=== PATIENT | male | born 1965 | race Caucasian/White ===

== ENCOUNTER → 2020-06-18 09:24 | Outpatient (CLI) | payer OTHER, SELFPAY ==
[2020-06-18 10:27] LABS: Add Manual Diff / Slide Review NO; Basophils Absolute Auto 100 /uL (0-100); Basophils Percent Auto 0.9 % (0-2); Eosinophils Absolute Auto 300 /uL (0-450); Eosinophils Percent Auto 3.4 % (2-4); Hematocrit 40.6 % (41-53); Hemoglobin 13.9 g/dL (13.5-17.5); Lymphocytes Absolute Auto 2800 /uL (1100-4500); Lymphocytes Percent Auto 32.1 % (25-40); Mean Corpuscular HGB Conc 34.4 % (30-36); Mean Corpuscular Hemoglobin 32.8 PG (26-34); Mean Corpuscular Volume 95.5 fL (80-100); Monocytes Absolute Auto 600 /uL (0-900); Monocytes Percent Auto 6.8 % (3-14); Neutrophils Absolute Auto 5000 /uL (1500-7000); Neutrophils Percent Auto 56.8 % (50-75); Platelet Count 236 X10^3/uL (150-400); Red Blood Cell Count 4.25 X10^6/uL (4.5-5.9); Red Cell Distribution Width 13.5 % (11.6-14.8); White Blood Cell Count 8.7 X10^3/uL (4.5-11.0)
[2020-06-18 11:05] LABS: BUN Creatinine Ratio 24.7 (6-22); Blood Urea Nitrogen 19 mg/dL (9-20); Calcium 9.5 mg/dL (8.4-10.2); Carbon Dioxide 26 mmol/L (22-32); Chloride 107 mmol/L (98-107); Estimated Glomerular Filt Rate > 60.0 mL/min (>60); Glucose 99 mg/dL (70-100); HEMOLYSIS < 15 (0-50); Potassium 4.4 mmol/L (3.4-5.1); Sodium 141 mmol/L (137-145)
== END ==
PROVIDERS: PCP Family Medicine; Referring Provider Orthopaedic Surgery; Visit Provider Orthopaedic Surgery
DX: Z01.818 Encounter for other preprocedural examination (principal); Z01.812 Encounter for preprocedural laboratory examination; R73.9 Hyperglycemia, unspecified; N39.0 Urinary tract infection, site not specified
CPT/HCPCS: 36415; 80048; 83036; 85025; 93005; 93010

== ENCOUNTER → 2020-06-26 09:37 | Outpatient (CLI) | payer OTHER, SELFPAY ==
[2020-06-26 10:00] LABS: Bacteria Urine None Seen; RBC Urine None Seen (0-5/HPF); WBC Urine None Seen (0-5/HPF)
[2020-06-26 10:58] LABS: Appearance Urine UA CLEAR; Bilirubin Urine UA NEGATIVE (NEGATIVE); Color Urine UA YELLOW; Glucose Urine UA NEGATIVE (Negative); Ketones Urine UA NEGATIVE (NEGATIVE); Leukocyte Esterase Urine UA NEGATIVE (NEGATIVE); Nitrite Urine UA NEGATIVE (Negative); Occult Blood Urine UA NEGATIVE (Negative); Protein Urine UA NEGATIVE (Negative); Specific Gravity Urine UA 1.025 (1.000-1.035); Urobilinogen Urine UA 0.2 E.U./dL (0.2); pH Urine UA 5.5 (4.5-8.0)
[2020-06-26 11:14] LABS: Culture Indicated Urine Cult Not Indicated; Urine Comments Microscopic Normal
[2020-06-27 14:13] LABS: COVID19 Sendout Not Detected (Not Detect)
== END ==
PROVIDERS: Physician Assistant; PCP Family Medicine; Referring Provider Orthopaedic Surgery; Visit Provider Orthopaedic Surgery
DX: Z11.59 Encounter for screening for other viral diseases (principal)
CPT/HCPCS: 81001; 87635

== ENCOUNTER 2020-06-29 09:41 | Observation (INO) | payer OTHER, SELFPAY ==
[2020-06-27 09:54] VITALS: BMI 31.4
[2020-06-29] VITALS (10 sets, daily range): BP systolic 117–134; BP diastolic 50–86; PULSE 65–88; RESP 16–24; TEMP 35.1–37.2; O2SAT 93–100; BMI 29.9
--- NOTE | 2020-06-29 | DI.RAD.S_ITS ---
PROCEDURE: XR PELVIS 1-2V INDICATIONS: LEFT HIP INTER OP TECHNIQUE: Intra-operative view of the pelvis and hip acquired. COMPARISON: None. FINDINGS: Bones: Intraoperative devices prior to placement of arthroplasty prostheses are in expected positions. No fractures or suspicious bony lesions. Soft tissues: Overlying surgical retractors are present, along with other intraoperative changes. IMPRESSION: Expected postsurgical change for intraoperative device placement prior to arthroplasty. Dictated by: Lexy Durbin MD, PhD on 06/29/2020 at 14:29 Approved by: Lexy Durbin MD, PhD on 06/29/2020 at 14:29
--- NOTE | 2020-06-29 | DI.RAD.S_ITS ---
PROCEDURE: XR HIP W PEL IF DONE LT 2V INDICATIONS: POST OP TECHNIQUE: 2 view(s) of the hip acquired. COMPARISON: [facility], CR, XR PELVIS 1-2V, 06/29/2020, 13:11. [facility], CR, XR PELVIS WITH LATERAL HIP LEFT, 06/15/2020, 15:22. FINDINGS: Bones: Patient is status post left hip arthroplasty, with hardware components in expected positions. The hip joint appears congruent. The visualized bony structures appear intact. Soft tissues: Overlying postoperative changes are noted. No suspicious soft tissue densities. A postoperative drain has been placed. IMPRESSION: Normal postoperative examination. Dictated by: Lm Nelson M.D. on 06/29/2020 at 14:08 Approved by: Lm Nelson M.D. on 06/29/2020 at 14:08
[2020-06-29] MEDS: ACETAMINOPHEN 325 MG TABLET 975 MG PO (10:03)
[2020-06-29] MEDS: PREGABALIN 75 MG CAPSULE PO (10:04)
[2020-06-29] MEDS: CELECOXIB 200 MG CAPSULE PO (10:04)
[2020-06-29] MEDS: LACTATED RINGERS 1,000 ML 42 ML IV ×2 (10:20→12:55)
[2020-06-29] MEDS: VANCOMYCIN 1,000 MG/200 ML PIGGYBACK 200 MG IV (10:33)
--- NOTE | 2020-06-29 11:27 | PM.PREOP ---
Pre-operative Note COVID-19 COVID-19 status: Negative Interval Note History & Physical reviewed/Exam performed by Physician: Yes Changes to H&P: No
--- NOTE | 2020-06-29 11:28 | P.OP_ITS ---
Operative Date/Time/Diagnoses Date of procedure: 06/29/20 Time of procedure: 11:56 Pre-op diagnosis: Severe left hip osteoarthritis Post-op diagnosis: same Procedure & Clinicians Procedure: Left total hip arthroplasty posterior approach Same procedure as scheduled: Yes Indications: The patient has had progressively worsening left hip pain with radiographic changes consistent with arthritis. Non-operative management has failed and the patient has requested total hip replacement. The risks, benefits and alternatives to surgery were discussed with the patient prior to proceeding. Risks discussed included, but were not limited to, failure to relieve pain, leg length discrepancy, dislocation, stiffness, infection, nerve damage, deep venous thrombosis, pulmonary embolism, stroke, coma, heart attack, permanent paralysis and , as well as the potential need for eventual revision of the prosthetic. Surgeon: Shannan Chen English Instructor: Peyton Villa Anesthesia Type: General and Spinal Operative Notes Findings: Severe left hip osteoarthritis, good stability, adequate bone Closure Type: primary Specimen(s): none sent Prosthetic devices, grafts, tissues, transplants, or devices: Chen [employer]hew R3 size 56, anthology size 8 standard offset, 115 mm screw, 36 by-3 femoral head Estimated Blood Loss (mL): 250 Blood products transfused: none Procedure in detail: The patient was seen in the pre-operative area, where the patient identified the left hip as the operative site and this was marked with my initials. The patient received pre-operative antibiotics and was taken to the operating room and placed on the operative table in the right lateral decubitus position after satisfactory anesthesia. A multimedia project manager out was performed. The left leg was prepared from the ankle to the iliac crest with ChloroPrep in the usual fashion and draped through sterile drapes. The hip was approached through an approximately 20 cm incision centered over the greater trochanter and curving gently posteriorly as it went proximally. This was carried sharply to the fascia roxanne, which was divided and retracted with a self retaining retractor. The trochanteric bursa was excised with care being taken to avoid the sciatic nerve, which was identified and protected throughout the case. The short external rotators were incised and the capsulomuscular flap was raised and tagged for later repair. The hip was dislocated, and a femoral neck osteotomy performed approximately 15 mm above the lesser trochanter. Retractors were placed around the femur. The canal was opened with a box cutting osteotome, followed by a T handled reamer and a lateralizing reamer. The chili pepper broach was then used, followed by sequential broaching until there was good stability of the broach in the femur. Retractors were placed to expose the acetabulum. The labrum and central soft tissues were removed. Reaming was performed initially going up in 2 mm increments, then 1 mm increments until good bite was obtained with an odd sized reamer. The cup 1 mm larger than the last reamer was then inserted using the appropriate anteversion guides. Fixation was further supplemented with a single screw. A trial neutral liner was placed. The broach was placed in the canal. A trial head and neck were then placed and the hip relocated and checked for leg length and stability. An intraoperative film confirmed the component position and no evidence of fracture. The patient was stable in the position of sleep, of squatting, and could be put through a range of motion with 45 degrees internal rotation without dislocation. At 90 degrees flexion, internal rotation to 80? was possible before dislocation. This was felt to be satisfactory and the appropriate components were opened, and the trials were removed. The acetabular liner was impacted into position. The final stem was then impacted into the prepared femoral canal. A brief Betadine soak was performed while trialing with head options. The hip was meticulously irrigated with normal saline. Finally the femoral head was impacted onto the stem. The acetabulum was cleared of all material and the hip relocated one final time. The capsulomuscular flap was then repaired to the greater trochanter though an awl hole using the tag sutures. The short external rotators were repaired with a nonabsorbable suture. A deep drain was placed and brought out anteriorly. The fascia roxanne was closed with Vicryl. The subcutaneous layer was closed with barbed sutures and SteriStrips. An Aquacel Ag dressing was applied and the patient was taken to recovery having tolerated the procedure well. Complications: none Post-operative Condition: stable Disposition: Acute Care Plan for aftercare: The patient will be maintained on a standard total hip replacement protocol with weight bearing as tolerated and posterior hip precautions. The patient will receive Aspirin and sequential compression devices for DVT prophylaxis. The patient will be discharged home when safe for the home environment.
[2020-06-29] MEDS: CEFAZOLIN 2 GM/100 ML FROZ.PIGGY IV ×2 (11:59→17:08)
[2020-06-29] MEDS: TRANEXAMIC ACID 1,000 MG VIAL 1000 MG INJ ×2 (12:23→13:43)
--- NOTE | 2020-06-29 12:39 | SUR.OPER ---
Supine on padded OR bed. Pillow under head, arms secured on padded armboards <90 degree abduction. Safety belt across torso. Non-operative leg secured with tape over blanket over lower leg. Operative leg secured in DeMayo/Tj positioner. Foam padded brace at thigh of operative leg.
[2020-06-29] MEDS: BUPIVACAINE 0.25% W/ EPI 30 ML VIAL 60 ML INJ (12:48)
[2020-06-29] MEDS: BUPIVACAINE LIPOSOME 266 MG/20 ML VIAL INJ (12:49)
[2020-06-29] MEDS: SODIUM CHLORIDE IRRIG SOLUTION 250 ML, POVIDONE-IODINE SPONGE STICKS 1 APPLIC IRR (12:50)
[2020-06-29] MEDS: EPINEPHrine 1 MG/ML SUBCUT (12:51)
--- NOTE | 2020-06-29 15:12 | SUR.PHASEI ---
Addendum entered by Lizy Odonnell R.N. 06/29/20 15:23: Report given on site in his room Original Note: 1445 Awake, oriented; denies pain/nausea. Juice given, tolerated well. 1450 Preparing to transfer. Became diaphoretic; pt denies any pain; states that this is normal for him, that he overheats readily. Cool wash cloth given. Remained in sinus rhythm throughout PACU, no seizure activity in PACU. 1452 to room 219, bed down and locked, call light within reach, SCDs on. Pt continues to deny pain/nausea. VSS with RA sat in mid-upper 90s. Hip dressing remains CDI; hemovac drainage only in the tubing. Clothing bag to the room. Pt and staff deny any questions; RN aware of history of seizures. Stable.
--- NOTE | 2020-06-29 15:35 | PC.NURSE ---
Day Shift- Pt arrived to unit at 1500 via bed with VA Medel from PACU giving bedside report. Pt alert, oriented to call light. bed alarm on. Denies pain Left posterior hip surgical incision covered with CDI aquacel dressing CDI, hemovac insitu with compression. Ice pack to left hip area. HOB elevated. Pt diaphoretic upon arrival to unit, states he has this at home as well and is not related to post anesthesia. VA Medel from PACU had given pt cold washcloth. O2 sat 95% on RA, on continuous O2 monitoring. Report given to VA Vazquez evening shift at 1520.
[2020-06-29] MEDS: LACTATED RINGERS 1,000 ML 125 ML IV (16:00)
[2020-06-29] MEDS: IBUPROFEN 400 MG TABLET PO (17:08)
[2020-06-29] MEDS: LOVASTATIN 20 MG TABLET 40 MG PO (17:08)
[2020-06-29] MEDS: ONDANSETRON 4 MG/2 ML INJ IV ×2 (17:35→22:15)
[2020-06-29] MEDS: DOCUSATE 100 MG CAPSULE PO (20:43)
[2020-06-29] MEDS: ASPIRIN EC 81 MG TABLET PO (20:43)
[2020-06-29] MEDS: ZONISAMIDE 100 MG CAPSULE PO (20:44)
[2020-06-29] MEDS: lamoTRIgine 100 MG TABLET 300 MG PO (20:44)
[2020-06-29] MEDS: METOCLOPRAMIDE 10 MG/2 ML INJ IV (22:35)
[2020-06-30 00:15] VITALS: BP 131/86; PULSE 80; RESP 16; TEMP 36.5; O2SAT 100
[2020-06-30] MEDS: IBUPROFEN 400 MG TABLET PO ×5 (00:15→16:46)
--- NOTE | 2020-06-30 01:00 | PC.NURSE ---
Straight catheter placed at 0008. 1000mL of clear and yellow urine drained. Patient tolerated procedure and catheter tip was intact when removed.
[2020-06-30] MEDS: LACTATED RINGERS 1,000 ML 125 ML IV (01:46)
[2020-06-30] MEDS: CEFAZOLIN 2 GM/100 ML FROZ.PIGGY IV (01:47)
[2020-06-30 05:28] VITALS: BP 130/77; PULSE 96; RESP 16; TEMP 36.3; O2SAT 100
[2020-06-30 05:38] LABS: Hematocrit 46.5 % (41-53); Hemoglobin 15.7 g/dL (13.5-17.5)
--- NOTE | 2020-06-30 06:55 | PC.NURSE ---
Called Dr. Sanderson at 0655. Bladder scanned the patient at 0650 and there is 650mL in the bladder. Dr. Sanderson ordered to input a straight catheter one time.
[2020-06-30 07:58] VITALS: BP 132/81; PULSE 105; RESP 18; TEMP 36.7; O2SAT 98
[2020-06-30 08:46] VITALS: PULSE 98; RESP 18; O2SAT 98
[2020-06-30] MEDS: ASPIRIN EC 81 MG TABLET PO (09:00)
[2020-06-30] MEDS: DOCUSATE 100 MG CAPSULE PO (09:00)
[2020-06-30] MEDS: TAMSULOSIN 0.4 MG CAPSULE PO (09:00)
[2020-06-30] MEDS: ACETAMINOPHEN 325 MG TABLET 650 MG PO ×2 (09:00→13:17)
[2020-06-30] MEDS: ZONISAMIDE 100 MG CAPSULE PO (09:02)
--- NOTE | 2020-06-30 09:40 | PT.IIE ---
Current Diagnoses Unilateral primary osteoarthritis, left hip (06/29/20) Surgery Performed Operation Date: 06/29/20 11:30 Actual Procedures p Total Hip Arthroplasty(Left) - Shannan Chen MD Surgical History (Last Updated 06/27/20 @ 10:16 by Maryan Garcia, RN) History of ankle surgery (Acute) History of vasectomy (Acute) Hx of colonoscopy with polypectomy (Acute) Medical History (Last Updated 06/27/20 @ 10:26 by Maryan Garcia RN) Anxiety (Acute) Atrial flutter, paroxysmal (Acute) Depression (Acute) Diabetes (Acute) Edentulous (Acute 2011) Gout (Acute) HLD (hyperlipidemia) (Acute) HTN (hypertension) (Acute) Osteoarthritis (Acute) Seasonal allergies (Acute) Seizures (Acute) Sleep apnea (Acute) Physical Therapy Inpatient Evaluation/Re-Eval M1 PT/OT-IP Prior Functional Status Start: 06/30/20 12:23 Freq: NEEDED Status: Active Protocol: Document 06/30/20 09:40 AB (Rec: 06/30/20 12:37 AB [email or web address]) Medical Review Prior Functional Status Medical History Reviewed Yes Communication able to make needs known Mobility and Gait pt stated that he is independent with all mobilities and ambulation without AD but occasionally uses a SPC Social History Household Members spouse Living Arrangements House Number of Floors (Floors) One Floor Number of Stairs To Enter/Railing? 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 M2 PT-IP Current Condition Start: 06/30/20 12:23 Freq: NEEDED Status: Active Protocol: Document 06/30/20 09:40 AB (Rec: 06/30/20 12:37 AB [email or web address]) Physical Therapy Current Condition Current Condition Evaluation Date 06/30/20 Treatment Diagnosis s/p L LIAM posterior approach; difficulty in walking Onset Date 06/29/20 Precautions Posterior Hip Precautions No Hip Flexion > 90 degrees,No Hip Internal Rotation,No Hip Adduction Weight Bearing Status Weight Bearing Status Weight Bear as Tolerated Allowed Weight Bearing Amount (enter % LLE WBAT or #) (%) M3 PT-IP Subjective Start: 06/30/20 12:23 Freq: NEEDED Status: Active Protocol: Document 06/30/20 09:40 AB (Rec: 06/30/20 12:37 [id number]) Subjective Physical Therapy Visit Type Type Initial Evaluation Visit Start Time 09:40 Visit Stop Time 10:41 Total Visit Minutes 61 Number of INSTRUCTIONAL MEDIA SERVICES TECHNICIAN Visits 0 Physical Therapy Visit Comments Patient Comments pt is agreeable to do PT Therapy Pain Assessment Pain When Pain Assessed At Rest Pain Present Pain Present Pain Reported Location left hip Intensity 2 Scale Used stated soreness and not really pain Pain Management Techniques Modification of Treatment,Re- positioning,Timing of Activity with Medications M4 PT-IP Mobility and Gait Start: 06/30/20 12:23 Freq: NEEDED Status: Active Protocol: Document 06/30/20 09:40 AB (Rec: 06/30/20 12:37 [id number]) PT-Bed Mobility Assessment Supine to Sit Supine to Sit Standby Assistance Sit to Supine Sit to Supine Standby Assistance PT-Transfer Assessment Sit to and From Stand Sit to and from Stand Standby Assistance Equipment Transfer Assistive Device Front Wheeled Walker Orthotic/Prosthetic Devices or Brace: No Transfers Transfer Destination Chair Transfer Technique ambulated using FWW Transfer Ability Level of Assist Standby Assistance,1 Person Assistance,Use of Upper Extremities Comments Mobility Comments educated pt regarding posterior hip precautions. pt completed supine to sit SBA . pt has high anxiety and refuse use of safety belt and stated that he is not a dog. pt completed sit to stand SBA and ambulated in room using FWW SBA ~ 20ft. agreed to walk in the hallway and do steps. ambulated ~ 250 ft using FWW SBA. educated on up /down steps and completed with spouse assisting using FWW SBA to CGA. pt assisted back to his room. ambulated towards the bed using FWW SBA. positioned in bed. call light and table placed within reach. Gait Assessment Gait Gait Assistance Required: Standby Assistance Distance (Feet) 250 Able to Maintain Weight Bearing Status Yes During Gait Assistive Devices Assistive Device Front Wheeled Walker Orthotic/Prosthetic Devices or Brace: No Gait Deviations General Gait Pattern Antalgic Factors Limiting Gait Function Factors Limiting Gait Function Decreased Activity Tolerance, Decreased Strength,Limited Range of Motion,Pain,Poor Balance,Poor Safety Awareness Stair Climbing Assessment Evaluation Level of Assist On Stairs Standby Assistance,Contact Guard Assistance Devices Stair Climbing Assistive Devices Front Wheel Walker Technique/Endurance Stair Climbing Direction Ascend and Descend Stair Climbing Technique Step to Step Number of Steps Climbed 1 Query Text: Stair Climbing Set # Repetitions (reps) 2 Comments Stair Climbing Comments completed platform step SBA PT-Balance Assessment Sitting Balance and Reactions Static Sitting Balance Ability Good Dynamic Sitting Balance Ability Good Standing Balance and Reactions Static Standing Balance Ability Fair Dynamic Standing Balance Ability Fair Device Used FWW M5 PT-IP Objective Assessments Start: 06/30/20 12:23 Freq: NEEDED Status: Active Protocol: Document 06/30/20 09:40 AB (Rec: 06/30/20 12:37 AB [email or web address]) Orientation Orientation/Cognition Level of Alertness Alert Orientation Name,Place,Situation Safety Awareness Decreased Safety Awareness Strength Lower Extremity Strength Assessment Left Impaired Hip 3+/5 Knee 4-/5 Coordination Assessment Gross Coordination Gross Coordination WNL Sensation Assessment Sensation Gross Sensation WNL Muscle Tone Muscle Tone WNL Yes M6 PT-IP Treatment Start: 06/30/20 12:23 Freq: NEEDED Status: Active Protocol: Document 06/30/20 09:40 AB (Rec: 06/30/20 12:37 AB [email or web address]) Physical Therapy Treatment Education Education Provided Precautions,Weight Bearing Status,Post-Op Packet,Safety Other Treatments Other Treatment Performed educated on car transfers and how to complete with hip precautions M7 PT-IP Assessment and Plan Start: 06/30/20 12:23 Freq: NEEDED Status: Active Protocol: Document 06/30/20 09:40 AB (Rec: 06/30/20 12:37 [email or web address]) PT Summary Assessment and Plan Potential Rehabilitation Potential Good Status of Condition at Evaluation Stable Summary Impairments Pain,ROM,Strength,Balance, Coordination,Bed Mobility, Transfers,Gait,Activity Tolerance Assessment Summary pt requiring SBA with mobility using FWW. Spouse was able to assist pt with up/down step. pt plans to go home and spouse to assist him and has outpt PT scheduled. pt may go home when medically stable Goals Bed Mobility Goal Independent Transfer Goal Independent,Front Wheeled Walker Gait Goal Independent,Front Wheel Walker Gait Distance 300 Other Goals up/down platform step using FWW mod I Days to Meet Goals 3 Frequency of Treatment Frequency Of Treatment Twice a Day Treatment Plan Physical Therapy Treatment Plan Bed Mobility Training,Transfer Training,Gait Training, Therapeutic Exercise,Balance Retraining,Post Op Education, Discharge Planning,Hot or Cold Pack,Neuromuscular Re-ed Recommendations To Nursing Amount of Assist Needed Standby Assistance Discharge Recommendations PT Discharge Recommendations Home with Assistance, Outpatient PT Transportation Needs at Discharge Private Vehicle
[2020-06-30] MEDS: lamoTRIgine 100 MG TABLET 300 MG PO (09:52)
[2020-06-30] MEDS: METOPROLOL ER 50 MG TABLET PO (09:52)
--- NOTE | 2020-06-30 10:35 | PM.PN.1 ---
Subjective Subjective Date Patient Seen: 06/30/20 Time Patient Seen: 11:03 Interval history: Patient is POD#1 s/p left posterior LIAM with Dr. Chen. Pain has been well controlled with Tylenol and Ibuprofen. He has mobilized with PT and completed stair training. He required 2 straight caths, last one this AM yielding 1100cc. Maria E was called overnight and patient was started on Flomax. He did have some nausea/vomting which has resolved and he has since tolerated a diet. Exam Vital Signs (past 8 hours): - 06/30/20 05:28 06/30/20 07:58 06/30/20 08:46 Temperature 97.4 F L 98.0 F Pulse Rate 96 H 105 H 98 H Respiratory Rate 16 18 18 Blood Pressure 130/77 132/81 Pulse Oximetry 100 98 98 Oxygen Delivery Method Room Air Oxygen Flow Rate 0 Narrative Exam Narrative: 55 year old male resting comfortably in bed. Alert and oriented in no acute distress. Neurovascularly intact in BLE. Calves soft, nontender. Objective Labs Result Diagrams: 06/30/20 05:20 Labs: Laboratory Results - last 24 hr 06/30/20 05:20 Hgb 15.7 Hct 46.5 Assessment & Plan Assessment & Plan narrative: Postoperative urinary retention: Patient has been started on Flomax 0.4mg daily. Will continue this for a week, script provided. Will continue to monitor with bladder scans, if he requires another catheterization will place a clayton for 24 hours. If he is able to void independently will discharge to home later today. Otherwise patient doing very well postoperatively. Continue to mobilize with PT, ASA for DVT prophylaxis. Discharge to home later today if able to void, otherwise likely discharge to home tomorrow.
[2020-06-30 11:19] VITALS: BP 110/68; PULSE 82; RESP 18; TEMP 37.1; O2SAT 99
--- NOTE | 2020-06-30 13:41 | CM.DANOTE ---
Patient is a 55 year old male who was admitted on 06/29/20 for Left Hip. Pt has [employer] for insurance and his PCP is Dr. Tyrone Dwyer. EMR was reviewed. Per Ortho PA, pt tolerated procedure well and has had some urinary retention but if able to void independently can d/c home later today after PT eval. Per PT, recommending safe d/c home with spouse and outpt PT. 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 Pt does not anticipate any needs at d/c and preference is home later today if he can urinate without issues. Plan: SW to follow for likely pt d/c home via spouse POV later today once he can void independently. No SW needs at this time, please refer if indicated. LILI Last
--- NOTE | 2020-06-30 14:15 | PT-IP ANOTE ---
Attempted to see pt @14:15, pt refused therapy. Pt able to recall 3/3 precautions.
[2020-06-30 15:25] VITALS: BP 119/64; PULSE 88; RESP 19; TEMP 37.1; O2SAT 98
--- NOTE | 2020-06-30 15:55 | PC.NURSE ---
Urinary retention: Bladder scanned at 0700 for 600mls. Pt wanted to wait and see if he could void. Still no void and was re scanned at 0900 and had 990mls. Flomax started. Discussed with pt to follow a more moderate fluid intake and IVF were salined locked. In and out cath placed at 0900. Return of 1100mls. Pt has not voided so far today. last bladder scan was 50mls. Pt instructed he could increase his fluid intake but not excessively.
--- NOTE | 2020-06-30 17:12 | PC.NURSE ---
pt urinated 225cc, post void residual bladder scan was 33cc. notified SLICK Villa regarding pt's status. pt ok to DC home. scripts given to patient. all belongings returned to patient. dc teaching done.
== END 2020-06-30 17:13 | disposition home or self-care (01) ==
LOC: OR 09:43 → AC 09:46
PROVIDERS: Admitting Provider Orthopaedic Surgery; PCP Family Medicine; Referring Provider Orthopaedic Surgery; Visit Provider Orthopaedic Surgery
PROC: 0SRB0JZ Replacement of Left Hip Joint with Synthetic Substitute, Open Approach (ICD-10-PCS; CPT 27130; principal; 2020-06-29 11:30)
DX: M16.12 Unilateral primary osteoarthritis, left hip (principal); I48.92 Unspecified atrial flutter; F41.9 Anxiety disorder, unspecified
CPT/HCPCS: 27130; 36415; 72170; 73502; 85014; 85018; 97161; 97530; C1776; G0378; C9290; J0171; J0690; J1100; J2250; J2274; J2405; J2704; J2765